=== PATIENT | male | born 1995 | race Caucasian/White ===

== ENCOUNTER → 2021-05-21 | Emergency (ER) | payer OTHER | LOC: ER 20:56 | DX: Z04.1 Encounter for examination and observation following transport accident (principal); Z53.21 Procedure and treatment not carried out due to patient leaving prior to being seen by health care provider; V89.2XXA Person injured in unspecified motor-vehicle accident, traffic, initial encounter; Y93.89 Activity, other specified; Y92.89 Other specified places as the place of occurrence of the external cause; Y99.8 Other external cause status ==